=== PATIENT | female | born 1965 | race Caucasian/White ===

== ENCOUNTER 2017-11-18 12:32 | Emergency (ER) | payer BC ==
[2017-11-18 12:54] VITALS: BP 140/103
--- NOTE | 2017-11-18 13:21 | UC ---
Abdominal Pain Female HPI - HPI Summary HPI Summary: This is Paulette kelly, documenting for attending Rory Causey M.D. Pt is a 52 y/o F who presents to [facility] c/o diffuse abdominal pain. Sx began midday yesterday, which improved after stretching and Tylenol, then returned last night. Characterized as cramping and is currently at its worst, ranked 7/ 10. Sx aggravated by standing, alleviated by nothing, unchanged by water. Reports back pain as well which is located diffusely throughout the lumbar region and characterized as an ache. Additionally c/o abdominal bloating, intermittent nausea with an episode of palpitations and diaphoresis while at work earlier today. Denies blood in stool, dysuria, fever, chills, CP. Notes that her last BM was this morning which was hard and smaller than usual. PMHx kidney stones - this is slightly similar to prior episode. No PSHx on the abdomen. - History of Current Complaint [place] [facility] [place] Complaint: ABDOMINAL PAIN Time Seen by Provider: 11/18/17 13:13 Hx Obtained From: Patient Onset/Duration: Lasting Days - Since yesterday, Still Present Severity Currently: Moderate Pain Intensity: 7 Pain Scale Used: 0-10 Numeric Location: Diffuse Character: Cramping Aggravating Factor(s): Other: - Standing Alleviating Factor(s): Nothing Associated Signs and Symptoms: Positive: Diaphoresis, Back Pain, Nausea. Negative: Fever Allergies/Adverse Reactions: Allergies Allergy/AdvReac Type Severity Reaction Status Date / Time aspirin Allergy Eyes Verified 11/18/17 12:54 Itchy/Swollen/Red/Watery pecans Allergy Congestion Uncoded 05/10/16 12:34 walnuts Allergy Congestion Uncoded 05/10/16 12:34 PMH/Surg Hx/FS Hx/Imm Hx - Additional Past Medical History Additional PMH: NEGATIVE PMHx: COPD, Asthma, DM Cardiovascular History: Hypertension - Surgical History Surgical History: Yes Surgery Procedure, Year, and Place: KIDNEY STONES REMOVAL - 2005. HERNIA- 1989. SINUS SURGERY- 1991 - Family History Known Family History: Positive: Cardiac Disease - Social History Alcohol Use: None Substance Use Type: Prescribed Smoking Status (MU): Former Smoker Type: Cigarettes Have You Smoked in the Last Year: No Review of Systems Constitutional: Other - Diaphoresis (resolved) Skin: Negative Eyes: Negative ENT: Negative Respiratory: Negative Cardiovascular: Palpitations - resolved Gastrointestinal: Abdominal Pain, Nausea, Other - Abdominal bloating Genitourinary: Negative Motor: Negative Neurovascular: Negative Musculoskeletal: Other: - Back pain Neurological: Negative Psychological: Negative All Other Systems Reviewed And Are Negative: Yes - Comments Additional Review of Systems Comments: NEGATIVE: Blood in stool, dysuria, fever, chills, CP Physical Exam - Summary Physical Exam Summary: General: well-appearing, moderate pain distress Skin: warm, color reflects adequate perfusion, dry Head: normal Eyes: EOMI, ENMANUEL ENT: normal Neck: supple, nontender Respiratory: CTA, breath sounds present Cardiovascular: RRR Abdomen: soft, tender on the upper abdomen bilaterally to palpation Bowel: hypoactive Musculoskeletal: normal, strength/ROM intact Neurological: sensory/motor intact, A&O x3 Psychological: affect/mood appropriate Triage Information Reviewed: Yes Vital Signs: Initial Vital Signs Temp 98.0 F 11/18/17 12:50 Pulse 89 11/18/17 12:50 Resp 18 11/18/17 12:50 BP 140/103 11/18/17 12:50 Pulse Ox 99 11/18/17 12:50 Vital Signs Reviewed: Yes Abd Pain Female Course/Dx - Course Course Of Treatment: Medications reviewed. Allergies noted. RECOMMENDED EVALUATION IN ED FOR ABDOMINAL PAIN. HERE AT CLINIC TODAY, WE HAVE NO CT/US AND TIMELY LAB RESULTS. - Differential Dx/Diagnosis Provider Diagnoses: ABDOMINAL PAIN Discharge - Sign-Out/Discharge Documenting (check all that apply): Patient Departure - Discharge - Discharge Plan Condition: Stable Disposition: HOME-RECOMMEND TO ED Patient Education Materials: Abdominal Pain (ED) Referrals: Sreedhar Siegel MD [Primary Care Provider] - Additional Instructions: GO DIRECTLY TO THE EMERGENCY DEPARTMENT FOR FURTHER EVALUATION AND CARE OF YOUR ABDOMINAL PAIN. - Billing Disposition and Condition Condition: STABLE Disposition: Home-Recommend to ED
== END 2017-11-18 13:24 | disposition home health service (06) ==
LOC: UCEAST 12:32
DX: R10.84 Generalized abdominal pain (principal); I10 Essential (primary) hypertension; Z87.891 Personal history of nicotine dependence; Z91.018 Allergy to other foods; Z88.6 Allergy status to analgesic agent
CPT/HCPCS: 99212; G0463

== ENCOUNTER 2017-11-18 13:45 | Emergency (ER) | payer BC ==
[2017-11-18] MEDS ORDERED: NS 0.9% 1000 ML* 1,000 ML IV ONE (14:36)
[2017-11-18] MEDS ORDERED: Metoclopramide IV* 5 MG/ML 2 ML VIAL IV ONE (14:36)
[2017-11-18] MEDS ORDERED: Morphine VIAL* 4 MG/ML VIAL (1 ml vial) IV ONE (14:36)
[2017-11-18 14:53] LABS: ABS Basophils 0.1 10^3/ul (0-0.2); ABS Eosinophils 0 10^3/ul (0-0.6); ABS Lymphocytes 1.2 10^3/ul (1.0-4.8); ABS Monocytes 0.4 10^3/ul (0-0.8); ABS Neutrophils 7.3 10^3/ul (1.5-7.7); ABS Nucleated RBC 0 10^3/ul; Eosinophil % 0.2 % (0-6); Hematocrit 40 % (35-47); Hemoglobin 13.4 g/dl (12.0-16.0); Lymphocyte % 13.3 % (25-47); Mean Corpuscular HGB Conc 34 g/dl (31-36); Mean Corpuscular Hemoglobin 28 pg (27-31); Mean Corpuscular Volume 81 fL (80-97); Mean Platelet Volume 7.4 um3 (7.4-10.4); Nucleated Red Blood Cells % 0.4; Platelet Count 297 10^3/ul (150-450); Red Blood Count 4.89 10^6/ul (4.00-5.40); Red Cell Distribution Width 14 % (10.5-15); White Blood Count 8.9 10^3/ul (3.5-10.8)
--- NOTE | 2017-11-18 15:05 | ED ---
Abdominal Pain/Female - HPI Summary HPI Summary: A 52 y/o female presents to ED c/o cramping abdominal pain. According to the patient, the pains started yesterday with an uncomfortable stomach ache, however she was able to get on with her routine activities. Throughout the day, the pain became more severe which ultimately led to a severity reaching 7/10 and the pain radiating to her lower back and both sides. Additional symptoms include bloating, diaphoreisis, shakes and change in appetite. Furthermore, she kept going to the bathroom, as she felt the need too, but had nothing come out. Pt denies any CP, SOB, N/V/D and burning, blood, pain or changing frequency with urination. Patient had a stool this morning but it did not help with pain. It was noted that the pain is not similar to that of her previous renal calculi. To alleviate symptoms, the patient tried Tylenol and stretching, however it did no good. PMHx of kidney stones, HTN and stents, denies DM. No major surguries and no medical issues known at this time. Allergic to walnuts, peanuts and Aspirin. - History of Current Complaint Chief Complaint: EDAbdPain Stated Complaint: ABD/BACK PAIN Time Seen by Provider: 11/18/17 14:03 Hx Obtained From: Patient Onset/Duration: Sudden Onset - 1 day ago, Lasting Days, Still Present, Worse Since - 11/13 Timing: Constant Severity Initially: Mild - Stomach ache Severity Currently: Severe Pain Intensity: 7 Pain Scale Used: 0-10 Numeric Location: Diffuse - Abdominal pain that radiates to side and back Radiates: Yes Radiates to: Back, Other - both sides Character: Cramping Aggravating Factor(s): Movement, Other: - Position Alleviating Factor(s): Nothing Associated Signs and Symptoms: Positive: Diaphoresis, Back Pain, Decreased Appetite, Other: - Bloating and shakes. Negative: Chest Pain, Urinary Symptoms , Nausea, Vomiting, Diarrhea Allergies/Adverse Reactions: Allergies Allergy/AdvReac Type Severity Reaction Status Date / Time aspirin Allergy Eyes Verified 11/18/17 13:56 Itchy/Swollen/Red/Watery pecans Allergy Congestion Uncoded 11/18/17 13:56 walnuts Allergy Congestion Uncoded 11/18/17 13:56 Home Medications: Home Medications Hydrochlorothiazide TAB* [Hydrodiuril TAB*] 12.5 mg PO DAILY 11/18/17 [History Confirmed 11/18/17] OXcarbazepine [Trileptal 150 mg] 2 tab PO BEDTIME 11/18/17 [History Confirmed ] amLODIPine TAB* [Norvasc 5 mg TAB*] 5 mg PO DAILY 11/18/17 [History Confirmed ] PMH/Surg Hx/FS Hx/Imm Hx Endocrine/Hematology History: Denies: Hx Diabetes, Hx Sickle Cell Disease Cardiovascular History: Reports: Hx Hypercholesterolemia, Hx Hypertension Denies: Hx Angina, Hx Congestive Heart Failure, Other Cardiovascular Problems /Disorders Respiratory History: Denies: Hx Asthma, Hx Chronic Obstructive Pulmonary Disease (COPD), Hx Sleep Apnea GI History: Denies: Hx Cirrhosis, Hx Crohn's Disease, Other GI Disorders History: Reports: Hx Kidney Stones - PATIENT HAD KIDNEY STONES IN PAST Denies: Other Problems/Disorders Musculoskeletal History: Denies: Hx Arthritis, Other Musculoskeletal History Sensory History: Reports: Hx Cataracts - LEFT EYE, Hx Contacts or Glasses - GLASSES Denies: Hx Hearing Aid Opthamlomology History: Reports: Hx Cataracts - LEFT EYE, Hx Contacts or Glasses - GLASSES Psychiatric History: Reports: Hx Depression - ON MEDICATION - Cancer History Hx Chemotherapy: No Hx Radiation Therapy: No - Surgical History Surgery Procedure, Year, and Place: KIDNEY STONES REMOVAL - 2005. HERNIA- 1989. SINUS SURGERY- 1991 Hx Anesthesia Reactions: No Infectious Disease History: No Infectious Disease History: Denies: Traveled Outside the [place] in Last 30 Days - Family History Known Family History: Positive: Cardiac Disease - Social History Alcohol Use: None Substance Use Type: Reports: Prescribed Smoking Status (MU): Former Smoker Type: Cigarettes Have You Smoked in the Last Year: No Review of Systems Positive: Skin Diaphoresis, Other - POSITIVE: bloating and shakes. Negative: Fever Negative: Chest Pain Negative: Shortness Of Breath Positive: Abdominal Pain - 7/10 radiating to sides and back. Negative: Vomiting , Diarrhea, Nausea Negative: burning, dysuria, frequency, pain Positive: Other - POSITIVE: Back pain All Other Systems Reviewed And Are Negative: Yes Physical Exam - Summary Physical Exam Summary: GENERAL: Patient is a well developed and nourished female who is lying comfortable in the stretcher. Patient is not in any acute respiratory distress. HEAD AND FACE: Normocephalic EYES: PERRLA, EOMI x 2. EARS: Hearing grossly intact. MOUTH: Oropharynx within normal limits. NECK: Supple, trachea is midline, no adenopathy, no JVD, no carotid bruit. CHEST: Symmetric, no tenderness at palpation LUNGS: Clear to auscultation bilaterally. No wheezing or crackles. CVS: Regular rate and rhythm, S1 and S2 present, no murmurs or gallops appreciated. ABDOMEN: Soft, mildly diffuse tenderness to palpation, no rebound or guarding. Bowel sounds are normal. No abdominal abnormal pulsations. EXTREMITIES: Full ROM in all major joints, no edema, no cyanosis or clubbing. NEURO: Alert and oriented x 3. No acute neurological deficits. Speech is normal and follows commands. SKIN: Dry and warm Triage Information Reviewed: Yes Vital Signs On Initial Exam: Initial Vitals Temp Pulse Resp BP Pulse Ox 98.4 F 90 20 133/86 96 11/18/17 13:52 11/18/17 13:52 11/18/17 13:52 11/18/17 13:52 11/18/17 13:52 Vital Signs Reviewed: Yes Diagnostics - Vital Signs Vital Signs Temp Pulse Resp BP Pulse Ox 11/18/17 14:52 18 11/18/17 13:52 98.4 F 90 20 133/86 96 - Laboratory Lab Results: Lab Results 11/18/17 Range/Units 14:44 WBC 8.9 (3.5-10.8) 10^3/ul RBC 4.89 (4.00-5.40) 10^6/ul Hgb 13.4 (12.0-16.0) g/dl Hct 40 (35-47) % MCV 81 (80-97) fL MCH 28 (27-31) pg MCHC 34 (31-36) g/dl RDW 14 (10.5-15) % Plt Count 297 (150-450) 10^3/ul MPV 7.4 (7.4-10.4) um3 Neut % (Auto) 81.3 (38-83) % Lymph % (Auto) 13.3 L (25-47) % [place] % (Auto) 4.5 (0-7) % Eos % (Auto) 0.2 (0-6) % Baso % (Auto) 0.7 (0-2) % Absolute Neuts (auto) 7.3 (1.5-7.7) 10^3/ul Absolute Lymphs (auto) 1.2 (1.0-4.8) 10^3/ul Absolute Monos (auto) 0.4 (0-0.8) 10^3/ul Absolute Eos (auto) 0 (0-0.6) 10^3/ul Absolute Basos (auto) 0.1 (0-0.2) 10^3/ul Absolute Nucleated RBC 0 10^3/ul Nucleated RBC % 0.4 Result Diagrams: 11/18/17 14:44 11/18/17 14:44 Lab Statement: Any lab studies that have been ordered have been reviewed, and results considered in the medical decision making process. - CT CT A/P CT Interpretation Completed By: Radiologist - 1. There is no CT apparent acute inflammatory change of the gastrointestinal tract. 2. Diverticulosis without focal inflammatory changes. 3. The liver is homogenously hypodense relative to the spleen which could be seen in the setting of hepatic steatosis. ED physician reviewed this radiology report. Re-Evaluation - Re-Evaluation First Eval Re-Evaluation Time: 16:09 Change: Improved Comment: Patients is feeling better. Discussed discharge with patient. Abdominal Pain Fem Course/Dx - Course Course Of Treatment: A 52 y/o female presents to ED c/o cramping abdominal pain. According to the patient, the pains started yesterday with an uncomfortable stomach ache, however she was able to get on with her routine activities. Throughout the day, the pain became more severe which ultimately led to a severity reaching 7/10 and the pain radiating to her lower back and both sides. Additional symptoms include bloating, diaphoreisis, shakes and change in appetite. A CT A/P revealed 1. There is no CT apparent acute inflammatory change of the gastrointestinal tract. 2. Diverticulosis without focal inflammatory changes. 3. The liver is homogenously hypodense relative to the spleen which could be seen in the setting of hepatic steatosis. In the ED course, pt recieved Omnipaque, Reglan, Morphine and IV fluids which improved her symptoms. During reevaluation, patient noted that she is feeling better. Patient will be discharged with a diagnosis of abdominal pain and diverticulosis. Patient is to follow up with PCP in 2-3 days. Pt is agreeable with this plan. - Diagnoses Provider Diagnoses: Diverticulosis, Abdominal pain Discharge - Sign-Out/Discharge Documenting (check all that apply): Patient Departure - DISCHARGE - Discharge Plan Condition: Stable Disposition: HOME Patient Education Materials: Diverticulosis (ED), Abdominal Pain (ED) Referrals: Sreedhar Siegel MD [Primary Care Provider] - Additional Instructions: RETURN TO ED FOR ANY NEW OR WORSENING SYMPTOMS. - Billing Disposition and Condition Condition: STABLE Disposition: Home
[2017-11-18 15:09] LABS: EGFR Non-African American 88.7 (>60)
[2017-11-18] MEDS ORDERED: Iohexol 300* (CONTRAST) 10 ML SDV IV ONE (15:14)
--- NOTE | 2017-11-18 16:01 | RAD ---
CLINICAL HISTORY: Abdominal and back pain COMPARISON: CT examination January 01, 2015 TECHNIQUE: Contrast enhanced CT examination of the abdomen and pelvis from the lung bases through the initial tuberosities. The patient received 97 mL Omnipaque 300 intravenously prior to imaging.The patient received oral contrast as well prior to imaging. FINDINGS: VISUALIZED LUNG BASES: The visualized lung bases are grossly clear. There is no pleural effusion. ABDOMEN AND PELVIS: The liver is homogenously hypodense relative to the spleen. There are no suspicious liver masses. The spleen, pancreas and adrenal glands are grossly normal in appearance. The gallbladder is normal. Fluid density cyst is noted in the left kidney. Otherwise the kidneys are normal in appearance without focal mass, calcification or signs of hydronephrosis. Evaluation of the gastrointestinal tract is limited without oral contrast. The small and large bowel are not distended. The patient's normal appendix is identified in the right lower quadrant measuring 5 mm in diameter (axial image 61 and coronal image 47). There are scattered diverticula in the distal colon without definite inflammatory changes characteristic of diverticulitis. There is no gross retroperitoneal or mesenteric lymphadenopathy. The pelvic viscera is normal in appearance. The abdominal aorta and iliac arteries are normal in course and diameter. Degenerative changes include multilevel loss of intervertebral disc height involving the lower thoracic and lumbar spine.There are no sinister bone lesions. IMPRESSION: 1. There is no CT apparent acute inflammatory change of the gastrointestinal tract. 2. Diverticulosis without focal inflammatory changes. 3. The liver is homogenously hypodense relative to the spleen which could be seen in the setting of hepatic steatosis.
[2017-11-18 16:32] LABS: Urine Appearance Clear; Urine Blood 1+ (Negative); Urine Color Straw; Urine Ketones Negative (Negative); Urine Protein Negative (Negative); Urine Red Blood Cell Trace(0-2/hpf) (Absent); Urine Specific Gravity 1.018 (1.010-1.030); Urine Urobilinogen Negative (Negative); Urine White Blood Cell Absent (Absent)
[2017-11-18] MEDS ORDERED: Potassium Chlor TAB* 20 MEQ TAB.ER PO ONE (16:46)
[2017-11-18 17:19] VITALS: BP 138/90
== END 2017-11-18 17:18 | disposition home or self-care (01) ==
LOC: ED 13:45
DX: K57.30 Diverticulosis of large intestine without perforation or abscess without bleeding (principal); M54.5 Low back pain; I10 Essential (primary) hypertension; F32.9 Major depressive disorder, single episode, unspecified; Z79.899 Other long term (current) drug therapy; Z87.442 Personal history of urinary calculi; Z87.891 Personal history of nicotine dependence; Z91.010 Allergy to peanuts; Z88.6 Allergy status to analgesic agent; Z91.018 Allergy to other foods
CPT/HCPCS: 36415; 74177; 80053; 81003; 81015; 82150; 83605; 83690; 83735; 84702; 85025; 86140; 87086; 96361; 96374; 96375; 99283; A9270-GY; J2270; J2765; Q9967

== ENCOUNTER 2019-09-26 09:41 | Observation (INO) ==
[2019-09-26 10:23] LABS: ABS Eosinophils 0.1 10^3/ul (0-0.6); ABS Lymphocytes 1.8 10^3/ul (1.0-4.8); ABS Monocytes 0.7 10^3/ul (0-0.8); Eosinophil % 0.6 %; Hematocrit 37 % (35-47); Hemoglobin 12.5 g/dL (12.0-16.0); Lymphocyte % 15.4 %; Mean Corpuscular HGB Conc 34 g/dL (31-36); Mean Corpuscular Hemoglobin 28 pg (27-31); Mean Corpuscular Volume 81 fL (80-97); Mean Platelet Volume 7.5 fL (7.4-10.4); Platelet Count 270 10^3/uL (150-450); Red Blood Count 4.52 10^6 /uL (3.70-4.87); Red Cell Distribution Width 14 % (10-15); White Blood Count 11.9 10^3/uL (3.5-10.8)
[2019-09-26 10:30] LABS: Albumin 4.1 g/dL (3.2-5.2); Albumin/Globulin Ratio 1.3 (1-3); BUN/Creatinine Ratio 21.6 (8-20); C Reactive Protein 277.22 mg/L (<8.01); Calcium 9.6 mg/dL (8.6-10.3); EGFR African American 98.2 (>60); EGFR Non-African American 81.2 (>60); Globulin 3.2 g/dL (2-4); Potassium 3.4 mmol/L (3.5-5.0); Total Bilirubin 0.6 mg/dL (0.2-1.0); Total Protein 7.3 g/dL (6.4-8.9)
[2019-09-26 11:08] LABS: Urine Appearance Cloudy; Urine Bilirubin Negative (Negative); Urine Blood 2+ (Negative); Urine Color Amber; Urine Glucose Negative (Negative); Urine Ketones Trace (Negative); Urine Nitrite Negative (Negative); Urine Protein 1+(30 mg/dL) (Negative); Urine Specific Gravity 1.056 (1.010-1.030); Urine Urobilinogen Negative (Negative)
[2019-09-26] MEDS ORDERED: KCL 10 MEQ/50 ML IVPREMIX 10 MEQ/50 ML BAG IV ONE (11:09)
[2019-09-26 11:16] LABS: Urine Bacteria Absent (Absent); Urine Red Blood Cell 3+(>10/hpf) (Absent); Urine Squamous Epithelial Cell Present (Absent); Urine White Blood Cell 2+(11-20/hpf) (Absent)
[2019-09-26] MEDS ORDERED: Prochlorperazine 5 mg/ml 2 ml VIAL (10 mg) IV PRN ×2 (12:37→17:54)
[2019-09-26] MEDS ORDERED: ZOSYN 3.375 GM x ONE DOSE over 30 miuntes IV STA (12:46)
[2019-09-26] MEDS ORDERED: ZOSYN 3.375 GM x ONE DOSE over 30 miuntes IV (13:00)
[2019-09-26] MEDS ORDERED: Propofol 10 MG/ML 20 ML BTL ONE (14:00)
[2019-09-26] MEDS ORDERED: Midazolam 2 mg/2 ml VIAL 1 mg/ml 2 ml VIAL (2 mg) ONE (14:00)
[2019-09-26] MEDS ORDERED: Lidocaine 2% PF 5 ML VIAL ONE (14:00)
[2019-09-26] MEDS ORDERED: fentaNYL 250 mcg/5 ml 50 MCG/ML 5 ml VIAL (250 MCG) ONE (14:00)
[2019-09-26] MEDS ORDERED: Succinylcholine 200 mg VIAL 20 mg/ml 10 ml VIAL (200 mg) ONE (14:03)
[2019-09-26] MEDS ORDERED: Rocuronium 50 mg VIAL 10 mg/ml 5 ml VIAL (50 mg) ONE (14:04)
[2019-09-26] MEDS ORDERED: Bupivacaine 0.25% EPI 200,000 30 ML SDV ONE (14:14)
[2019-09-26] MEDS ORDERED: Dexamethasone IV 4 MG/ML VIAL 1 ml VIAL ONE (15:20)
[2019-09-26] MEDS ORDERED: Ondansetron 4 mg VIAL 2 MG/ML 2 ml VIAL ONE (15:20)
[2019-09-26] MEDS ORDERED: Phenylephrine IV 10 MG/ML 1 ml VIAL ONE (15:21)
[2019-09-26] MEDS ORDERED: HYDROmorphone 1 MG/1 ML SYRINGE ONE (16:02)
[2019-09-26] MEDS ORDERED: Sevoflurane BOTTLE ONE (16:21)
[2019-09-26] MEDS ORDERED: Glycopyrrolate IV 0.2 MG/ML 1 ML VIAL ONE (16:26)
[2019-09-26] MEDS ORDERED: Neostigmine Methylsulfate 1 MG/ML 10 ML VIAL (1 mg/ml) ONE (16:26)
[2019-09-26] MEDS ORDERED: Metoclopramide 5 MG/ML VIAL (10 mg) IV PRN ×2 (17:34→17:54)
[2019-09-26] MEDS ORDERED: fentaNYL 100 mcg/2 ml 50 MCG/ML VIAL IV PRN (17:54)
[2019-09-26] MEDS ORDERED: Naloxone 0.4 mg VIAL 0.4 mg/ml 1 ml VIAL IV PRN (17:54)
[2019-09-26] MEDS ORDERED: Metoclopramide 5 MG/ML VIAL (10 mg) ONE (17:55)
[2019-09-26] MEDS ORDERED: fentaNYL 100 mcg/2 ml 50 MCG/ML VIAL ONE (18:40)
[2019-09-26] MEDS: NS 0.9% w/ 20 Meq KCL 1000 ml 1,000 ML IV SCH (20:47)
[2019-09-26] MEDS: Piperacillin/Tazobac ADVAN(*) 3.375 GM in NS 0.9% 100 ml BAG 100 ML IV SCH (21:01)
[2019-09-27] MEDS: NS 0.9% w/ 20 Meq KCL 1000 ml 1,000 ML IV SCH ×2 (04:46→13:04)
[2019-09-27] MEDS: Piperacillin/Tazobac ADVAN(*) 3.375 GM in NS 0.9% 100 ml BAG 100 ML IV SCH ×3 (04:46→20:31)
[2019-09-27 04:51] LABS: ABS Monocytes 0.6 10^3/ul (0-0.8); Hematocrit 30 % (35-47); Hemoglobin 9.9 g/dL (12.0-16.0); Lymphocyte % 8.4 %; Mean Corpuscular HGB Conc 34 g/dL (31-36); Mean Corpuscular Hemoglobin 27 pg (27-31); Mean Corpuscular Volume 82 fL (80-97); Mean Platelet Volume 7.7 fL (7.4-10.4); Platelet Count 237 10^3/uL (150-450); Red Blood Count 3.61 10^6 /uL (3.70-4.87); Red Cell Distribution Width 14 % (10-15); White Blood Count 11.5 10^3/uL (3.5-10.8)
[2019-09-27 05:06] LABS: BUN/Creatinine Ratio 28.8 (8-20); Calcium 8.4 mg/dL (8.6-10.3); EGFR African American 127.6 (>60); EGFR Non-African American 105.4 (>60)
[2019-09-28] MEDS: NS 0.9% w/ 20 Meq KCL 1000 ml 1,000 ML IV SCH ×2 (03:39→17:45)
[2019-09-28] MEDS: Piperacillin/Tazobac ADVAN(*) 3.375 GM in NS 0.9% 100 ml BAG 100 ML IV SCH ×3 (05:20→21:00)
[2019-09-28] MEDS: Lisdexamfetamine 10 mg CAP(NF) PO SCH (08:40)
[2019-09-28 10:15] LABS: ABS Basophils 0.1 10^3/ul (0-0.2); ABS Eosinophils 0.1 10^3/ul (0-0.6); ABS Lymphocytes 1.9 10^3/ul (1.0-4.8); ABS Monocytes 0.5 10^3/ul (0-0.8); Eosinophil % 1.4 %; Hematocrit 30 % (35-47); Hemoglobin 10.5 g/dL (12.0-16.0); Lymphocyte % 29.4 %; Mean Corpuscular HGB Conc 35 g/dL (31-36); Mean Corpuscular Hemoglobin 28 pg (27-31); Mean Corpuscular Volume 82 fL (80-97); Mean Platelet Volume 7.6 fL (7.4-10.4); Platelet Count 259 10^3/uL (150-450); Red Blood Count 3.69 10^6 /uL (3.70-4.87); Red Cell Distribution Width 14 % (10-15); White Blood Count 6.5 10^3/uL (3.5-10.8)
[2019-09-28 10:22] LABS: BUN/Creatinine Ratio 11.5 (8-20); Calcium 8.4 mg/dL (8.6-10.3); EGFR African American 122.8 (>60); EGFR Non-African American 101.5 (>60); Potassium 3.5 mmol/L (3.5-5.0)
[2019-09-29] MEDS: Piperacillin/Tazobac ADVAN(*) 3.375 GM in NS 0.9% 100 ml BAG 100 ML IV SCH ×2 (04:37→12:38)
[2019-09-29] MEDS: NS 0.9% w/ 20 Meq KCL 1000 ml 1,000 ML IV SCH (08:41)
[2019-09-29] MEDS: Lisdexamfetamine 10 mg CAP(NF) PO SCH (08:42)
[2019-09-29 11:42] VITALS: BP 122/82
== END 2019-09-29 14:47 | disposition home or self-care (01) ==
LOC: ED 09:41 → SSU 14:16 → SDS 14:16
PROVIDERS: ADMIT Surgery; ATTEND Surgery Surgical Critical Care